=== PATIENT | female | born 1970 | race Caucasian/White ===

== ENCOUNTER 2016-12-14 10:48 | Day surgery (SDC) | payer BC, OTHER ==
--- NOTE | ~2016-12-14 | EGD ---
EGD REPORT [facility] [address] [address] NAME: BRYANNA MOMIN : [birth year] STATUS : [place] [facility] [place] [facility] [place] PAT#: [id number] AGE: 46 ADM/REG DATE : 12/14/16 MR#: [id number] REPORT SERV DATE: 12/14/16 DICTATED BY: PRINCE DIA DATE: 12/14/16 REPORT STATUS : Draft TRANSCRIBED BY: [facility] DATE: 12/14/16 Endoscopy Center Patient Name: Bryanna Momin Date of : 1970 Attending MD: PRINCE DIA MD Procedure Date No Time: 12/14/2016 Procedure: Upper GI endoscopy Indications: Abdominal pain in the right upper quadrant, Nausea with vomiting Referring MD: HIMANSHU BULLOCK Medicines: as per anesthesia Complications: No immediate complications. Procedure: After obtaining informed consent, the endoscope was passed under direct vision. Throughout the procedure, the patient's blood pressure, pulse, and oxygen saturations were monitored continuously. The GIF H190 [id number] was introduced through the mouth, and advanced to the third part of duodenum. The upper GI endoscopy was accomplished without difficulty. The patient tolerated the procedure. Findings: The examined esophagus was normal. Localized mild inflammation characterized by erythema and friability was found in the gastric antrum. Biopsies were taken with a cold forceps for histology. The cardia and gastric fundus were normal on retroflexion. The examined duodenum was normal. Impression: - Normal esophagus. - Gastritis. Biopsied. - Normal examined duodenum. Recommendation: - Await pathology results. Procedure Code(s): --- Professional --- 23947, Esophagogastroduodenoscopy, flexible, transoral; with biopsy, single or multiple Diagnosis Code(s): --- Professional --- K29.70, Gastritis, unspecified, without bleeding R10.11, Right upper quadrant pain R11.2, Nausea with vomiting, unspecified EGD REPORT [facility] [address] [address] NAME: BRYANNA MOMIN : [birth year] STATUS : [place] [facility] [place] [facility] [place] PAT#: [id number] AGE: 46 ADM/REG DATE : 12/14/16 MR#: [id number] REPORT SERV DATE: 12/14/16 DICTATED BY: PRINCE DIA. DATE: 12/14/16 REPORT STATUS : Draft TRANSCRIBED BY: [email or web address] DATE: 12/14/16 CPT copyright 2013 [employer]. All rights reserved. The codes documented in this report are preliminary and upon medical biller coder review may be revised to meet current compliance requirements. PRINCE DIA MD 12/14/2016 12:54 PM This report has been signed electronically. Number of Addenda: 0 Note Initiated On: 12/14/2016 12:30 PM Scope Withdrawal Time 0 hours 0 minutes 0 seconds [address] [facility] [address] [id number]
[~2016-12-14 10:48] MED LIST: ADDERALL5 MG PO; AMIT25 PO; ATEN50 PO; BROVANA15 MCG INH; CELEBREX2 PO; DULERA INH; Dulera Inhaler INH; ESTRACE1 MG PO; FIORICET OR; IMITREX100 MG PO; PERCOCET 10/3251 TAB PO; PR25 PO; SINGULAIR1 PO; SYN.05 PO; TESTOSTERONE T; XOPENEX HFA INH; [UNRECOGNIZED DRUG - OTHER] PO; [UNRECOGNIZED DRUG - OTHER] T
[2017-06-24] MEDS ORDERED: TESTOSTERONE CREAM (16:51)
[2017-06-24] MEDS ORDERED: PROGESTERONE PO (16:51)
== END 2016-12-14 23:59 | disposition home or self-care (01) ==
LOC: DMU 10:48
PROVIDERS: Internal Medicine Gastroenterology
PROC: 0DB68ZX Excision of Stomach, Via Natural or Artificial Opening Endoscopic, Diagnostic (ICD-10-PCS; principal; 2016-12-14 12:00)
DX: K29.70 Gastritis, unspecified, without bleeding (principal); J45.909 Unspecified asthma, uncomplicated; E05.00 Thyrotoxicosis with diffuse goiter without thyrotoxic crisis or storm; L40.50 Arthropathic psoriasis, unspecified; E66.9 Obesity, unspecified; F90.9 Attention-deficit hyperactivity disorder, unspecified type; Z68.32 Body mass index [BMI] 32.0-32.9, adult; Z88.1 Allergy status to other antibiotic agents; Z90.49 Acquired absence of other specified parts of digestive tract; Z90.710 Acquired absence of both cervix and uterus; Z98.82 Breast implant status; Z90.89 Acquired absence of other organs; Z98.890 Other specified postprocedural states; Z79.818 Long term (current) use of other agents affecting estrogen receptors and estrogen levels; Z79.899 Other long term (current) drug therapy
CPT/HCPCS: 88305

== ENCOUNTER 2017-06-28 09:26 | Day surgery (SDC) | payer OTHER ==
[~2017-06-28] VITALS: Ht 165.1 cm; Wt 88.5 kg
--- NOTE | ~2017-06-28 | EGD ---
EGD REPORT [facility] [address] [place] [address] NAME: BRYANNA MOMIN : [birth year] STATUS : [facility] PAT#: [id number] AGE: 47 ADM/REG DATE : 06/28/17 MR#: [id number] REPORT SERV DATE: 07/02/17 DICTATED BY: PRINCE DIA DATE: 07/02/17 REPORT STATUS : Draft TRANSCRIBED BY: [facility] DATE: 07/02/17 Endoscopy Center Patient Name: Bryanna Momin Date of : 1970 Attending MD: PRINCE DIA MD Procedure Date No Time: 06/28/2017 Procedure: Colonoscopy Indications: Abdominal pain in the right upper quadrant, FH of Colonic Polyps - 1st degree relative Referring MD: HIMANSHU FRAUSTO Medicines: as per anesthesia Complications: No immediate complications. Procedure: Pre-Anesthesia Assessment: - ASA Grade Assessment: III - A patient with severe systemic disease. After I obtained informed consent, the scope was passed under direct vision. Throughout the procedure, the patient's blood pressure, pulse, and oxygen saturations were monitored continuously. The [facility] [id number] was introduced through the anus and advanced to the cecum, identified by appendiceal orifice and ileocecal valve. The colonoscopy was performed without difficulty. The patient tolerated the procedure. The quality of the bowel preparation was fair. Findings: The perianal and digital rectal examinations were normal. Internal hemorrhoids were found during endoscopy and were mild. Impression: - Internal hemorrhoids. Recommendation: - Repeat colonoscopy in 5 years for surveillance. Procedure Code(s): --- Professional --- 28304, Colonoscopy, flexible, proximal to splenic flexure; diagnostic, with or without collection of specimen(s) by brushing or washing, with or without colon decompression (separate procedure) Diagnosis Code(s): --- Professional --- K64.8, Other hemorrhoids R10.11, Right upper quadrant pain Z83.71, Family history of colonic polyps EGD REPORT [facility] [address] [address] NAME: BRYANNA MOMIN : [birth year] STATUS : [facility]#: [id number] AGE: 47 ADM/REG DATE : 06/28/17 MR#: [id number] REPORT SERV DATE: 07/02/17 DICTATED BY: PRINCE DIA. DATE: 07/02/17 REPORT STATUS : Draft TRANSCRIBED BY: [employer] DATE: 07/02/17 CPT copyright 2013 [employer]. All rights reserved. The codes documented in this report are preliminary and upon label coder review may be revised to meet current compliance requirements. PRINCE DIA MD 06/28/2017 12:14 PM This report has been signed electronically. Number of Addenda: 0 Note Initiated On: 06/28/2017 11:32 AM Scope Withdrawal Time 0 hours 7 minutes 35 seconds [address] [id number]
[~2017-06-28 09:26] MED LIST changes: +PROGESTERONE PO; +TESTOSTERONE CREAM
== END 2017-06-28 23:59 | disposition home health service (06) ==
LOC: DMU 09:26
PROVIDERS: Internal Medicine Gastroenterology
PROC: 0DJD8ZZ Inspection of Lower Intestinal Tract, Via Natural or Artificial Opening Endoscopic (ICD-10-PCS; principal; 2017-06-28 10:30)
DX: K64.8 Other hemorrhoids (principal); J45.909 Unspecified asthma, uncomplicated; M06.9 Rheumatoid arthritis, unspecified; F90.9 Attention-deficit hyperactivity disorder, unspecified type; E05.00 Thyrotoxicosis with diffuse goiter without thyrotoxic crisis or storm; Z83.71 Family history of colonic polyps; Z88.1 Allergy status to other antibiotic agents; Z79.899 Other long term (current) drug therapy; Z90.710 Acquired absence of both cervix and uterus; Z90.49 Acquired absence of other specified parts of digestive tract; Z98.890 Other specified postprocedural states
CPT/HCPCS: J2250; J2405